=== PATIENT | female | born 1960 | race Caucasian/White ===

== ENCOUNTER → 2018-01-29 | Outpatient (CLI) | payer BC ==
[2018-01-30 11:07] LABS: Creatinine Urine 36.9 mg/dL (27.00-270.00); Protein, Urine Quantitative 41.4 mg/dL (0.0-11.9)
== END | disposition home or self-care (01) ==
LOC: LAB 06:49 → LAB SHORT 06:49
PROVIDERS: Internal Medicine Nephrology
DX: N18.3 Chronic kidney disease, stage 3 (moderate) (principal); D63.1 Anemia in chronic kidney disease; N25.81 Secondary hyperparathyroidism of renal origin; E55.9 Vitamin D deficiency, unspecified; E78.00 Pure hypercholesterolemia, unspecified; R73.09 Other abnormal glucose
CPT/HCPCS: 81050; 82043; 82570; 84156

== ENCOUNTER 2019-12-21 07:46 | Day surgery (SDC) | payer BC | END 2019-12-21 22:38 | disposition home or self-care (01) | LOC: MOI US 07:46 → MOI MAM 08:00 → MOI US 08:00 | DX: C50.911 Malignant neoplasm of unspecified site of right female breast (principal); Z17.0 Estrogen receptor positive status [ER+] | CPT/HCPCS: 19083; 77065; 88305; 88360; A4648 ==

== ENCOUNTER → 2021-08-03 | Outpatient (CLI) | payer BC | END | disposition home or self-care (01) | LOC: PLD 07:28 → LAB SHORT 07:28 | DX: M67.449 Ganglion, unspecified hand (principal) | CPT/HCPCS: 88305 ==

== ENCOUNTER → 2022-10-19 | Outpatient (CLI) | payer BC | END | disposition home or self-care (01) | LOC: LAB SHORT 06:00 → LAB 06:00 → LAB FUT 10-16 10:15 | PROVIDERS: Internal Medicine Nephrology | DX: N18.30 Chronic kidney disease, stage 3 unspecified (principal); D63.1 Anemia in chronic kidney disease | CPT/HCPCS: 81050; 84156 ==

== ENCOUNTER → 2022-12-21 | Outpatient (CLI) | payer BC ==
[2022-12-21 09:28] LABS: Creatinine Urine 29.9 mg/dL (27.00-270.00)
== END ==
LOC: LAB 06:00 → LAB SHORT 06:00
PROVIDERS: Internal Medicine Nephrology
DX: N18.30 Chronic kidney disease, stage 3 unspecified (principal); D63.1 Anemia in chronic kidney disease; N25.81 Secondary hyperparathyroidism of renal origin; E78.00 Pure hypercholesterolemia, unspecified; R76.9 Abnormal immunological finding in serum, unspecified; R94.5 Abnormal results of liver function studies; R94.6 Abnormal results of thyroid function studies
CPT/HCPCS: 81050; 82043; 82570; 84156

== ENCOUNTER → 2023-05-11 | Outpatient (CLI) | payer BC ==
[2023-05-11 10:30] LABS: Creatinine Urine 43.2 mg/dL (27.00-270.00); Protein, Urine Quantitative 19.7 mg/dL (0.0-11.9)
== END ==
LOC: LAB SHORT 06:30 → LAB 06:30
PROVIDERS: Internal Medicine Nephrology
DX: N18.4 Chronic kidney disease, stage 4 (severe) (principal); D63.1 Anemia in chronic kidney disease; N25.81 Secondary hyperparathyroidism of renal origin; E55.9 Vitamin D deficiency, unspecified; E78.00 Pure hypercholesterolemia, unspecified; R76.9 Abnormal immunological finding in serum, unspecified; R94.5 Abnormal results of liver function studies; R94.6 Abnormal results of thyroid function studies; D51.8 Other vitamin B12 deficiency anemias; D52.8 Other folate deficiency anemias; D59.9 Acquired hemolytic anemia, unspecified
CPT/HCPCS: 81050; 82043; 82570; 84156